=== PATIENT | male | born 1965 | race Caucasian/White ===

== ENCOUNTER 2017-10-22 09:25 | Inpatient (IN) | payer OTHER ==
[~2017-10-22] VITALS: Ht 30.5 cm; Wt 5.0 kg
[2017-10-22] MEDS ORDERED: CIPRO500 MG (09:51)
[2017-10-22] MEDS ORDERED: FLAGYL500MG (09:51)
[2017-10-22] MEDS ORDERED: DICY20TA (09:51)
[2017-10-27] MEDS ORDERED: CIPRO500 MG PO (12:25)
[2017-10-27] MEDS ORDERED: FLAGYL500MG PO (12:25)
[2017-10-27] MEDS ORDERED: INTESTINEX680 M1 PO (12:26)
[2017-10-27] MEDS ORDERED: ZANTAC150 MG PO (12:26)
== END 2017-10-27 12:56 | disposition home or self-care (01) | DRG 392 ==
LOC: ER 09:25 → PED 17:31 → MEDJ 17:31
PROC: BW25Y0Z Computerized Tomography (CT Scan) of Chest, Abdomen and Pelvis using Other Contrast, Unenhanced and Enhanced (ICD-10-PCS; principal; 2017-10-22)
DX: K57.32 Diverticulitis of large intestine without perforation or abscess without bleeding (principal); K51.518 Left sided colitis with other complication; K64.8 Other hemorrhoids

== ENCOUNTER 2018-02-02 10:26 | Day surgery (SDC) | payer OTHER ==
[~2018-02-02 10:26] MED LIST: CIPRO500 MG; CIPRO500 MG PO; DICY20TA; FLAGYL500MG; FLAGYL500MG PO; INTESTINEX680 M1 PO; ZANTAC150 MG PO
== END 2018-02-02 14:10 | disposition home or self-care (01) ==
LOC: AMB-ENDOS 10:26
DX: K64.8 Other hemorrhoids (principal); K52.89 Other specified noninfective gastroenteritis and colitis